=== PATIENT | female | born 1995 | race Caucasian/White ===

== ENCOUNTER → 2017-02-25 | Outpatient (CLI) | payer BC, OTHER | END | disposition home or self-care (01) | LOC: C.RDSM 09:23 | PROVIDERS: ATTEND Family Medicine | DX: G89.29 Other chronic pain (principal); M54.5 Low back pain ==

== ENCOUNTER → 2017-04-01 | Outpatient (CLI) | payer BC, OTHER ==
--- NOTE | 2017-04-01 19:50 | DIAGNOSTIC IMAGING REPORT ---
MRI OF THE LUMBAR SPINE WITHOUT IV CONTRAST CLINICAL HISTORY: Lumbar radiculopathy. COMPARISON STUDY: Radiographs of the lumbar spine dated 02/25/2017. TECHNIQUE: MRI of the lumbar spine is performed using various T1 and T2-weighted sequences in the axial and sagittal planes. IV contrast was not administered for this examination. FINDINGS: Lumbar spine: Vertebral body height and alignment are maintained throughout the lumbar spine. Normal marrow signal intensity is preserved throughout the visualized bony structures. The transverse and spinous processes appear intact. There is no evidence of spondylolysis. No destructive bony lesion is seen. Intervertebral discs: Normal in height and signal intensity. Spinal cord: The visualized spinal cord is normal in morphology and signal intensity. The conus medullaris terminates at the T12-L1 interspace. L1-L2: Unremarkable. L2-L3: Unremarkable. L3-L4: Unremarkable. L4-L5: Unremarkable. L5-S1: Mild facet arthropathy is of no consequence. The central canal and neural foramina are widely patent. A tiny synovial cyst arises posteriorly from the left facet and measures 4 mm as seen on axial image #27. Sacrum: The visualized sacrum is normal in morphology and signal intensity. Soft tissues: The paraspinous soft tissues are within normal limits. The partially visualized retroperitoneal structures are grossly unremarkable but incompletely assessed. IMPRESSION: 1. There is no disc herniation, central canal stenosis, or significant neural foraminal narrowing identified throughout the lumbosacral spine. 2. The bony structures are normal in appearance. Dictated: 04/01/2017 7:06 PM Transcribed: 04/01/2017 7:50 PM Caleb Electronically signed by: Francis Shearer M.D. 04/01/2017 7:51 PM Dictated Date/Time: 04/01/2017 7:06 PM
== END | disposition home or self-care (01) ==
LOC: C.MRI 17:25
PROVIDERS: ATTEND Family Medicine
DX: M54.16 Radiculopathy, lumbar region (principal)

== ENCOUNTER → 2017-10-27 | Outpatient (CLI) | payer BC, OTHER ==
--- NOTE | 2017-10-27 13:49 | DIAGNOSTIC IMAGING REPORT ---
SACRUM 2 VIEWS CLINICAL HISTORY: Sacral pain. FINDINGS: AP and lateral views of the sacrum are obtained. No prior studies are available for comparison at the time of dictation. The skeletal structures are well mineralized. There is no radiographic evidence of sacral fracture. Minimal sclerotic change is noted in the sacroiliac joints. No erosive disease is identified. The hip joints are normal as imaged. A tiny phlebolith is seen in the pelvis. IMPRESSION: No acute sacral abnormality is identified. Electronically signed by: Francis Shearer M.D. 10/27/2017 1:48 PM Dictated Date/Time: 10/27/2017 1:47 PM
== END | disposition home or self-care (01) ==
LOC: C.RAD1850 12:05
PROVIDERS: ATTEND Family Medicine
DX: M53.3 Sacrococcygeal disorders, not elsewhere classified (principal)